=== PATIENT | female | born 1930 | race Caucasian/White ===

== ENCOUNTER 2019-04-24 19:40 | Inpatient (IN) | payer OTHER ==
[~2019-04-24] VITALS: Ht 165.1 cm; Wt 62.4 kg
[2019-04-24 19:40] VITALS: BP_SYST 118
--- NOTE | 2019-04-24 19:40 | NUR ---
Patient to ER bed 08 to gown for evaluation. Side rails up. Report given to DILCIA Hicks.
[2019-04-24] MEDS ORDERED: LACT1CAP7 PO (19:49)
--- NOTE | 2019-04-24 19:52 | NUR ---
Dr. Ray bedside for Pt eval
[2019-04-24] MEDS ORDERED: ALBU8.5H8 INH (19:53)
[2019-04-24] MEDS ORDERED: ANAS1TAB51 PO (19:54)
[2019-04-24] MEDS ORDERED: UMEC1BLS IH (19:55)
[2019-04-24] MEDS ORDERED: ASPI-1155 PO (19:56)
[2019-04-24] MEDS ORDERED: BRI.2% OP (19:57)
[2019-04-24] MEDS ORDERED: DOCU250C14 PO (19:57)
[2019-04-24] MEDS ORDERED: FERR-69 PO (20:00)
[2019-04-24] MEDS ORDERED: DILT300C54 PO (20:00)
--- NOTE | 2019-04-24 20:00 | NUR ---
Pt BIBA from [facility] to ED C/O shortness of breath today. Per family, Pt was seen around 14:00 today with difficulty breathing and a sharp chest pain, 5/10 in severity. Pain mild in severity. Pt has history of COPD and Dementia. Pt is normally not on O2. En route Pt was placed on 4 liters O2 with relief. Family reports noticing the Pt had difficulty with speaking today which is not baseline for for her. No other injuries and or complaints noted. VSS no s/s of acute distress. Resting on gurney with rails up. Pt has paperwork documentation for DNR status
[2019-04-24] MEDS ORDERED: HYDR200T80 PO (20:06)
[2019-04-24] MEDS ORDERED: MELA3TAB PO (20:06)
[2019-04-24] MEDS ORDERED: MULT-1100 PO (20:07)
[2019-04-24] MEDS ORDERED: PRO40 PO (20:08)
[2019-04-24] MEDS ORDERED: NACL 0.9% 1,000 ML IV ONE (20:08)
[2019-04-24] MEDS ORDERED: NAPR-1172 PO (20:08)
[2019-04-24] MEDS ORDERED: POTA-80 PO (20:09)
[2019-04-24] MEDS ORDERED: PRAV20TA PO (20:11)
[2019-04-24] MEDS ORDERED: DET2 PO (20:12)
--- NOTE | 2019-04-24 20:14 | NUR ---
Medication reconciliation completed with information provided by Burak Fink. Any prior medication reconciliation on file was reviewed and corrected.
[2019-04-24] MEDS ORDERED: cefTRIAXone 1 GM IVPB PREMIX 50 ML IV ONE (20:15)
[2019-04-24] MEDS ORDERED: LevALBUTEROL HCL 1.25 MG/0.5 ML *CONC.* VIAL.NEB (XOPENEX CONC.) INH ONE (20:15)
[2019-04-24] MEDS ORDERED: methylPREDNISolone SOD SUCC/PF 62.5 MG/ML VIAL IVP ONE (20:15)
[2019-04-24] MEDS ORDERED: IPRATROPIUM BROM 0.5 MG/2.5 ML VIAL.NEB (ATROVENT) IH ONE (20:15)
--- NOTE | 2019-04-24 20:21 | NUR ---
Portable X Ray bedside pt in stable condition
[2019-04-24 20:45] LABS: HEMATOCRIT 33.2 % (36-48); HEMOGLOBIN 11.1 g/dL (12.0-16.0); MEAN CORPUSCULAR HEMOGLOBIN 29 pg (27-31); MEAN CORPUSCULAR HGB CONC 33 % (32-36); MEAN CORPUSCULAR VOLUME 85 fL (79.0-98.0); PLATELET COUNT (AUTO) 148 K/uL (130-430); RED BLOOD CELL COUNT(AUTO) 3.89 MIL/uL (4.2-6.2); RED CELL DISTRIBUTION WIDTH 17.1 % (9.0-15.0)
--- NOTE | 2019-04-24 20:45 | NUR ---
RT bedside for ABG draw, well tolerated
[2019-04-24 20:50] LABS: ANION GAP 9 (5-15); CALCIUM 8.8 mg/dL (8.4-11.0); CHLORIDE 98 mmol/L (98-107); CREATININE 0.89 mg/dL (0.55-1.30); GLUCOSE 89 mg/dL (70-99); POTASSIUM 5.2 mmol/L (3.5-5.1); SODIUM SERUM 129 mmol/L (136-145); UREA NITROGEN, BLOOD 32 mg/dL (8-21)
[2019-04-24 20:56] LABS: INR 1.1 (0.8-1.2); PROTHROMBIN TIME 11.3 SECS (9.5-12.5)
[2019-04-24 20:59] LABS: ALANINE AMINOTRANSFERASE 17 U/L (12-78); ASPARTATE AMINOTRANSFERASE 30 U/L (10-37); TOTAL BILIRUBIN 0.7 mg/dL (0.0-1.0)
[2019-04-24 21:08] LABS: BAND % (MANUAL) 10 % (0-6); LYMPHOCYTES % (MANUAL) 1 % (20-46)
[2019-04-24 21:09] LABS: BASOPHILS % (MANUAL) 0 % (0-2); EOSINOPHILS % (MANUAL) 0 % (0-7); MONOCYTES % (MANUAL) 5 % (0-11)
--- NOTE | 2019-04-24 21:49 | NUR ---
RT informed Dr. Ray, unable to obtain ABG
--- NOTE | 2019-04-24 21:50 | NUR ---
VSS no s/s of acute distress. Resting on gurney with rails up
--- NOTE | 2019-04-24 22:40 | NUR ---
2nd Lactic lab drawn, well tolerated
--- NOTE | 2019-04-24 23:23 | NUR ---
Transfer to Telemetry via ACLS protocol. Licensed nurse present. IV present no signs or symptoms of infiltration.
--- NOTE | 2019-04-24 23:23 | NUR ---
Patient will be admitted to care of Dr. Cotto. Admitted to Telemetry unit. Will go to room 132C. Belongings list completed. Summary report printed. Report will be given at bedside.
--- NOTE | 2019-04-24 23:23 | NUR ---
ADMIT NOTE Received pt from ER to the floor with a diagnosis of PNA, SEPSIS. Admission process initiated. patient oriented to pain management, safety and call light-teach back done.
[2019-04-24 23:35] VITALS: BP_SYST 130
[2019-04-24] MEDS ORDERED: LEVOFLOXACIN 500 MG/D5W 100 ML IV SCH (23:45)
--- NOTE | 2019-04-24 23:50 | NUR ---
Initial RN notes Received pt from ED. Pt AOx1, able to follow commands. No s/s distress noted. On O2 4L via NC. IVF infusing on L. AC 20G clear and patent secured with gauze. Family at bedside. Bed low, locked, siderails x3 elevated, bed alarm on. Call light within reach. Pt room near nursing station. To monitor.
[2019-04-25] MEDS: IPRATROPIUM/ALBUTEROL SULFATE 3 ML AMPUL.NEB (DUONEB) INH SCH ×7 (00:15→22:50)
[2019-04-25] MEDS ORDERED: SODIUM POLYSTYRENE SULFONATE 15 GM/60 ML UDBTL PO SCH (00:30)
[2019-04-25 00:40] VITALS: BP_SYST 130
[2019-04-25 00:43] VITALS: BP_SYST 130
[2019-04-25] MEDS ORDERED: LEVOFLOXACIN 500 MG/D5W 100 ML IV ONE (00:55)
[2019-04-25] MEDS ORDERED: CLINDAMYCIN 600 mg/50mL D5W 100 ML IV ONE (00:56)
[2019-04-25] MEDS: CLINDAMYCIN 600 MG in D5W 50 ML IV SCH ×5 (00:57→23:37)
[2019-04-25] MEDS: NACL 0.9% 1,000 ML IV SCH ×2 (01:05→15:21)
--- NOTE | 2019-04-25 01:20 | NUR ---
[facility] CONSULT CALLED/DR. LOVE WRAPPER STEMMER HAND FOR DR. PAZ Spoke with Glory from exchange. Dr. Love will be covering for Dr. Paz today.
--- NOTE | 2019-04-25 01:23 | NUR ---
Kayexelate PO given per MD order with applesauce. Pt HOB elevated. Pt tolerated well, no coughing or drooling noted.
--- NOTE | 2019-04-25 01:27 | NUR ---
MRSA nares collected and sent to lab.
--- NOTE | 2019-04-25 01:55 | NUR ---
Wound Pt awake, small BM noted, pericare provided. Photos taken of left fourth toe wound 0.5cm x 0.5cm 60% yellow wound and 40% pink periwound open to air, no odor noted. Coccyx wound noted, photo taken and applied Z guard barrier cream. Pt tolerated well.
--- NOTE | 2019-04-25 03:52 | NUR ---
ABG drawn by RT at bedside. Addendum: 04/25/19 at 0451 by Iwona Amor RN On 2L TOMASA.
--- NOTE | 2019-04-25 06:10 | NUR ---
Closing notes Pt alert, awake, follows commands. SR on the monitor. Pt denies difficulty breathing. O2 2L via NC. PO med crushed and administered with applesauce. Pt sat upright, tolerated well. IV antibiotic administered as ordered L AC 20G no s/s infiltration. Kei heels floated on pillow. Incontinence care provided and barrier cream applied to sacral area. Repositioned. Call light within reach. Bed low, locked, siderails up x 2, bed alarm on. To endorse to AM nurse.
[2019-04-25] MEDS: PANTOPRAZOLE SODIUM 40 MG TAB PO SCH (06:14)
[2019-04-25 06:36] LABS: BASOPHILS % (AUTO) 0.1 % (0.0-2.0); HEMATOCRIT 28.9 % (36-48); HEMOGLOBIN 9.6 g/dL (12.0-16.0); LYMPHOCYTES # (AUTO) 0.2 K/uL (1.0-5.5); MEAN CORPUSCULAR HEMOGLOBIN 29 pg (27-31); MEAN CORPUSCULAR HGB CONC 33 % (32-36); MEAN CORPUSCULAR VOLUME 86 fL (79.0-98.0); MONOCYTES # (AUTO) 0.2 K/uL (0.0-1.0); MONOCYTES % (AUTO) 2.1 % (1.7-9.3); NEUTROPHILS # (AUTO) 11.1 K/uL (1.8-7.7); NEUTROPHILS % (AUTO) 95.8 % (40.0-70.0); PLATELET COUNT (AUTO) 133 K/uL (130-430); RED BLOOD CELL COUNT(AUTO) 3.36 MIL/uL (4.2-6.2); RED CELL DISTRIBUTION WIDTH 17.1 % (9.0-15.0); WHITE BLOOD COUNT (AUTO) 11.5 K/uL (4.8-10.8)
[2019-04-25 07:25] LABS: ANION GAP 7 (5-15); CALCIUM 8.5 mg/dL (8.4-11.0); CHLORIDE 101 mmol/L (98-107); GLUCOSE 158 mg/dL (70-99); POTASSIUM 4.7 mmol/L (3.5-5.1); SODIUM SERUM 130 mmol/L (136-145)
[2019-04-25 07:26] LABS: UREA NITROGEN, BLOOD 35 mg/dL (8-21)
[2019-04-25 08:00] VITALS: BP_SYST 114
[2019-04-25] MEDS: ENOXAPARIN SODIUM 30 MG/0.3 ML SYRINGE SUBCUT SCH (08:54)
[2019-04-25] MEDS: ASPIRIN 81 MG TAB.CHEW PO SCH (08:54)
[2019-04-25] MEDS: MULTIVITS,CA,MINERALS/IRON/FA 1 TABLET PO SCH (08:54)
[2019-04-25] MEDS: LACTOBACILLUS RHAMNOSUS GG 1 CAP CAPSULE PO SCH ×2 (08:54→21:59)
[2019-04-25] MEDS: DILTIAZEM HCL 120 MG CAP.SR.24H PO SCH (08:55)
[2019-04-25] MEDS: ANASTROZOLE 1 MG TABLET (ARIMIDEX) PO SCH (08:55)
[2019-04-25] MEDS: DOCUSATE SODIUM 250 MG CAPSULE PO SCH (08:56)
[2019-04-25] MEDS: DILTIAZEM HCL 180 MG CAP.SR.24H PO SCH (08:56)
[2019-04-25] MEDS: FERROUS SULFATE 325 MG TABLET.DR PO SCH (08:56)
[2019-04-25] MEDS: HYDROXYCHLOROQUINE SULFATE 200 MG TABLET PO SCH ×2 (08:56→21:58)
[2019-04-25] MEDS ORDERED: DILTIAZEM HCL 300 MG CAP.SR.24H PO SCH (09:00)
[2019-04-25] MEDS ORDERED: TOLTERODINE TARTRATE 2 MG TABLET(DETROL) PO SCH (09:00)
--- NOTE | 2019-04-25 09:30 | NUR ---
Skin /wound care completed , repositioned.
[2019-04-25] MEDS ORDERED: methylPREDNISolone SOD SUCC 40 MG/ML VIAL IVP ONE (10:15)
--- NOTE | 2019-04-25 10:27 | NUR ---
Nutrition Update Huy Scale 12 noted. Pt admitted for pneumonia, sepsis. Diet: pureed BMI: 22 kg/m2 RD to follow per nutrition care standards.
--- NOTE | 2019-04-25 11:40 | NUR ---
IV RE-INSERTION: Complaining of SWELLING to IV site. Restarted on LEFT FOREARM. Successful after 1 attempts. Resumed current IVF , Will observe for any signs of infiltration.
[2019-04-25] MEDS: BRIMONIDINE TARTRATE 0.2% 5 mL EYE DROPS OP SCH ×2 (12:07→21:59)
[2019-04-25 12:28] VITALS: BP_SYST 122
--- NOTE | 2019-04-25 13:08 | NUR ---
Igor Carrillo called, left message for Svetlana.
--- NOTE | 2019-04-25 14:13 | NUR ---
PATIENT RESTING: Patient resting quietly. No acute distress noted. Vital signs within normal range., HOB kept semi fowlers , family at the bedside.
[2019-04-25 16:12] VITALS: BP_SYST 122
--- NOTE | 2019-04-25 16:14 | NUR ---
Dietitian Recommendations * Recommend continuing pureed diet (ONS Ensure Enlive TID comes standard w/ pureed diet; provides 1050 kcal/day, 60 gm protein/day) * Consider ST saman eval albert HAN, RD Please refer to Nutrition Assessment for details Addendum: 04/25/19 at [address] Amended: Links added.
--- NOTE | 2019-04-25 18:09 | NUR ---
Assisted in feeding aspiration precaution tolerates pureed diet with out aspiration , with poor appetite.
--- NOTE | 2019-04-25 19:05 | NUR ---
OPENING NOTE Bedside report received from dayshift nurse. Patient received lying in bed, no s/s of acute distress noted. Breathing is even and unlabored. Nasal canula attached properly, on 2L of oxygen, HOB raised. IVF infusing well. Call light with patient. Bed alarm on. Bed is locked and at lowest position. Will continue to monitor.
[2019-04-25 20:00] VITALS: BP_SYST 131
--- NOTE | 2019-04-25 21:00 | NUR ---
ROUNDS/INCONTINENT CARE Patient in bed, receiving incontinent care from COCOA ROASTER. No signs of discomfort noted. Patient tolerating well. IVF infusing well. Will continue to monitor.
[2019-04-25] MEDS: methylPREDNISolone SOD SUCC 40 MG/ML VIAL IVP SCH (21:58)
[2019-04-25] MEDS: ATORVASTATIN 10 MG TABLET PO SCH (21:58)
[2019-04-25] MEDS: MIRTAZAPINE 15 MG TABLET PO SCH (21:59)
[2019-04-25] MEDS: LEVOFLOXACIN 250 MG/D5W 50 ML IV SCH (22:00)
[2019-04-25] MEDS: MEGESTROL ACETATE 400 MG/10 ML UDC PO SCH (22:00)
--- NOTE | 2019-04-25 23:00 | NUR ---
ROUNDS Patient in bed sleeping at this time. No s/s of acute distress noted. Breathing even and unlabored. IVF infusing well. Call light with patient. Bed alarm on. Will continue to monitor.
--- NOTE | 2019-04-26 01:00 | NUR ---
ROUNDS Patient sleeping at this time. No signs of discomfort noted. Chest rise and fall even bilaterally. IVF infusing well. Call light with patient. Bed alarm on. Will continue to monitor.
[2019-04-26 01:25] VITALS: BP_SYST 141
[2019-04-26] MEDS: IPRATROPIUM/ALBUTEROL SULFATE 3 ML AMPUL.NEB (DUONEB) INH SCH ×6 (02:25→22:10)
--- NOTE | 2019-04-26 03:00 | NUR ---
ROUNDS Patient in bed, asleep. No s/s of acute distress noted. Breathing even and unlabored. IVF infusing well. Nasal canula attached properly. HOB raised. Call light with patient. Bed alarm on. Will continue to monitor.
--- NOTE | 2019-04-26 05:00 | NUR ---
ROUNDS Patient in bed asleep. No signs of discomfort noted. Chest rise and fall even bilaterally. IVF infusing well. Call light with patient. Bed alarm on. Will continue to monitor.
[2019-04-26] MEDS: CLINDAMYCIN 600 MG in D5W 50 ML IV SCH ×3 (06:24→17:46)
[2019-04-26] MEDS: PANTOPRAZOLE SODIUM 40 MG TAB PO SCH (06:24)
[2019-04-26 06:41] LABS: BASOPHILS % (AUTO) 0.1 % (0.0-2.0); HEMATOCRIT 27.8 % (36-48); HEMOGLOBIN 9.4 g/dL (12.0-16.0); LYMPHOCYTES # (AUTO) 0.4 K/uL (1.0-5.5); LYMPHOCYTES % (AUTO) 4.9 % (20.5-51.5); MEAN CORPUSCULAR HEMOGLOBIN 29 pg (27-31); MEAN CORPUSCULAR HGB CONC 34 % (32-36); MEAN CORPUSCULAR VOLUME 86 fL (79.0-98.0); MONOCYTES # (AUTO) 0.4 K/uL (0.0-1.0); MONOCYTES % (AUTO) 4.6 % (1.7-9.3); NEUTROPHILS # (AUTO) 8.1 K/uL (1.8-7.7); NEUTROPHILS % (AUTO) 90.4 % (40.0-70.0); PLATELET COUNT (AUTO) 148 K/uL (130-430); RED BLOOD CELL COUNT(AUTO) 3.24 MIL/uL (4.2-6.2); RED CELL DISTRIBUTION WIDTH 17.4 % (9.0-15.0)
--- NOTE | 2019-04-26 06:41 | NUR ---
CLOSING NOTES Patient in bed sleeping at this time. No s/s of acute distress noted. Breathing even and unlabored. Nasal canula attached properly, on 2L of oxygen. HOB raised. IVF infusing well, IV site patent, no signs of infiltration or infection noted. Feet elevated with pillows. All needs met throughout shift. Fall and safety precautions maintained throughout shift. Will continue to monitor until patient care is endorsed to oncoming dayshift nurse.
[2019-04-26 06:53] LABS: ANION GAP 10 (5-15); CALCIUM 8.3 mg/dL (8.4-11.0); CHLORIDE 100 mmol/L (98-107); CREATININE 1.23 mg/dL (0.55-1.30); GLUCOSE 168 mg/dL (70-99); POTASSIUM 4.9 mmol/L (3.5-5.1); SODIUM SERUM 130 mmol/L (136-145); UREA NITROGEN, BLOOD 45 mg/dL (8-21)
--- NOTE | 2019-04-26 07:55 | NUR ---
INITIAL ROUNDS Received pt AAOx1, no s/s resp distress, no s/s pain or discomfort. Pt being fed breakfast by SENIOR ORACLE ADF DEVELOPER with aspiration precautions in place. IVF infusing well to LAC at ordered rate with no s/s infiltration to site. Pt on Q2 2L via NC as ordered. Skin and safety precautions in place. Call light within reach.
[2019-04-26 08:15] VITALS: BP_SYST 138
--- NOTE | 2019-04-26 08:38 | NUR ---
Igor Dodge update: received call from Courtney (applications architect for Svetlana). Courtney stated she received my message and will be in tomorrow morning.
[2019-04-26] MEDS: HYDROXYCHLOROQUINE SULFATE 200 MG TABLET PO SCH ×2 (10:17→21:00)
[2019-04-26] MEDS: DOCUSATE SODIUM 250 MG CAPSULE PO SCH (10:17)
[2019-04-26] MEDS: methylPREDNISolone SOD SUCC 40 MG/ML VIAL IVP SCH ×2 (10:17→21:53)
[2019-04-26] MEDS: FERROUS SULFATE 325 MG TABLET.DR PO SCH (10:17)
[2019-04-26] MEDS: LACTOBACILLUS RHAMNOSUS GG 1 CAP CAPSULE PO SCH ×2 (10:17→21:00)
[2019-04-26] MEDS: MEGESTROL ACETATE 400 MG/10 ML UDC PO SCH ×2 (10:17→21:00)
[2019-04-26] MEDS: MULTIVITS,CA,MINERALS/IRON/FA 1 TABLET PO SCH (10:17)
[2019-04-26] MEDS: ANASTROZOLE 1 MG TABLET (ARIMIDEX) PO SCH (10:17)
[2019-04-26] MEDS: ASPIRIN 81 MG TAB.CHEW PO SCH (10:18)
[2019-04-26] MEDS: DILTIAZEM HCL 120 MG CAP.SR.24H PO SCH (10:18)
[2019-04-26] MEDS: DILTIAZEM HCL 180 MG CAP.SR.24H PO SCH (10:18)
[2019-04-26] MEDS: ENOXAPARIN SODIUM 30 MG/0.3 ML SYRINGE SUBCUT SCH (10:21)
[2019-04-26] MEDS: BRIMONIDINE TARTRATE 0.2% 5 mL EYE DROPS OP SCH ×2 (10:28→21:53)
--- NOTE | 2019-04-26 10:45 | NUR ---
ROUNDS Pt resting quietly in bed with no s/s resp distress, no c/o pain or discomfort. Pt given due medications one pill at a time with aspiration precautions in place-pt able to swallow each pill, just took time. All precautions remain in place, call light within reach.
[2019-04-26] MEDS: NACL 0.9% 1,000 ML IV SCH ×2 (12:18→23:41)
[2019-04-26 12:50] VITALS: BP_SYST 129
--- NOTE | 2019-04-26 14:55 | NUR ---
ROUNDS Pt resting quietly in bed with no s/s resp distress, no c/o pain or discomfort. Pt's family at bedside, pt resfusing to wake up to eat her lunch. All precautions remain in place.
--- NOTE | 2019-04-26 16:10 | NUR ---
WOUND CARE Removed old dressing to sacral area. *Right sacral wound. Area cleansed with normal saline, hydrogel placed on wound bed, moisture barrier cream applied to periwound area, covered with foam dressing. Wound bed 100% pink, no odor, minimal drainage, no necrotic tissue note, periwound pink. Measures 0.5 cm x 0.5 cm. Left sacral wound. Area cleansed with normal saline, hydrogel placed on wound bed, moisture barrier cream applied to periwound area, covered with foam dressing. Wound bed 100% pink, no odor, minimal drainage, no necrotic tissue note, periwound pink. Measures 0.5 cm x 0.5 cm. Pt tolerated well. Pt repositioned with pillow support and heels off-loaded for skin care.
[2019-04-26 16:17] VITALS: BP_SYST 140
--- NOTE | 2019-04-26 18:16 | NUR ---
CLOSING NOTE Pt resting quietly in bed with no s/s resp distress, noted pt with dry cough. Order obtained for air mattress, pt placed on air mattress. IVf infusing well at ordered rate with no s/s infiltration to site. Pt's daughter at bedside. Needs met, call light within reach.
[2019-04-26 19:00] VITALS: BP_SYST 140
--- NOTE | 2019-04-26 19:15 | NUR ---
change of shift.pt.presents quiescent affect;calm,lethargic.pt.somnolent.general affect;calm,respiratory status stable; shallow breathing,bradypnea pattern/character.iv fluids infusing.call light/telephone w/in reach of the pt.family@bedside; multiple members.
[2019-04-26 20:00] VITALS: BP_SYST 140
--- NOTE | 2019-04-26 20:00 | NUR ---
pt assessed.v/s assessed.values w/in normal limits.pt.presents quiescent affect;calm,somnolent.lethargic.pt.assessed for cleanliness.pt.repositioned.iv access intact;patent.iv fluids infusing.general status stable.respiratory status;compromised. breathing pattern character;shallow,bradypnea;02-sat%=096%@room air.to continue to monitor breathing;respiratory status.call light/telephone placed w/in reach of the pt.
[2019-04-26] MEDS: ATORVASTATIN 10 MG TABLET PO SCH (21:00)
[2019-04-26] MEDS: OXYBUTYNIN CHLORIDE 5 MG TABLET PO SCH (21:00)
[2019-04-26] MEDS: MIRTAZAPINE 15 MG TABLET PO SCH (21:00)
--- NOTE | 2019-04-26 21:00 | NUR ---
2100p medications.i have attempted to administer the po medications;pt.presents lethargic somnolent status.pt.incapable to receive the administration of the po medications.i have administered eye gtts,ivpb;cleocin,solumedrol;ivp.to continue to monitor the pt's general status.
[2019-04-26] MEDS: LEVOFLOXACIN 250 MG/D5W 50 ML IV SCH (21:52)
--- NOTE | 2019-04-26 22:00 | NUR ---
pt.assessed.pt.presents quiescent affect;calm,somnolent.pt.assessed for cleanliness.pt.cleaned.pt.repositioned.iv access;intact;patent. iv fluids infusing.general status stable.respiratory status stable;unlabored.call light/telephone placed w/in reach of the pt.
--- NOTE | 2019-04-27 | NUR ---
pt.assessed.v/s assessed;values w/in normal limits.no c/o pain,nausea.pt.presents quiescent affect;calm,somnolent.pt.assessed for cleanliness.pt.repositioned.general status stable.respiratory status stable;.call light/telephone placed w/in reach of the pt.
[2019-04-27 00:59] VITALS: BP_SYST 111
[2019-04-27] MEDS: CLINDAMYCIN 600 MG in D5W 50 ML IV SCH ×5 (01:14→23:45)
--- NOTE | 2019-04-27 02:00 | NUR ---
pt assessed.pt.presents quiescent affect;calm,somnolent.pt.assessed for cleanliness.pt.repositioned.iv access intact;patent. general status stable.respiratory status stable.call light/telephone placed w/in reach of the pt.
[2019-04-27] MEDS: IPRATROPIUM/ALBUTEROL SULFATE 3 ML AMPUL.NEB (DUONEB) INH SCH ×6 (02:15→23:34)
--- NOTE | 2019-04-27 04:00 | NUR ---
pt.assessed pt.presents quiescent affect;calm somnolent.pt.assessed for cleanliness.pt.repositioned.iv acces intact;patent. general status stable.respiratory status stable.call light/telephone placed w/in the reach of the pt.
--- NOTE | 2019-04-27 06:01 | NUR ---
CONSULTATION CALLED FOR Starla AVENDANO FOR CONSULT OF CHF ORDER BY DR RAY SPOKE WITH DONNELL
[2019-04-27] MEDS: PANTOPRAZOLE SODIUM 40 MG TAB PO SCH (06:20)
--- NOTE | 2019-04-27 06:34 | NUR ---
pt.assessed.pt.presents quiescent affect;calm,somnolent.general status stable;lethargic.respiratory status stable. shallow depth:o2-sat%=96%@room air.pt.assessed for cleanliness.pt.cleaned,repositioned.iv access;intact;patent. iv fluids infusing.i have attempted to feed the pt.pudding p/t attempt to administer protonix;0700a dose:as a trial to eval swallow capacity. po:pt.refused the pudding.pt.presents weak swallow capacity;function.hold the protonix administration.i have weighed the pt;2/t monitoring of the bnp.
[2019-04-27 07:22] LABS: HEMATOCRIT 28.7 % (36-48); HEMOGLOBIN 9.6 g/dL (12.0-16.0); LYMPHOCYTES # (AUTO) 0.4 K/uL (1.0-5.5); MEAN CORPUSCULAR HEMOGLOBIN 29 pg (27-31); MEAN CORPUSCULAR HGB CONC 34 % (32-36); MEAN CORPUSCULAR VOLUME 86 fL (79.0-98.0); MONOCYTES # (AUTO) 0.6 K/uL (0.0-1.0); MONOCYTES % (AUTO) 4.9 % (1.7-9.3); NEUTROPHILS # (AUTO) 10.9 K/uL (1.8-7.7); NEUTROPHILS % (AUTO) 92.1 % (40.0-70.0); PLATELET COUNT (AUTO) 139 K/uL (130-430); RED BLOOD CELL COUNT(AUTO) 3.34 MIL/uL (4.2-6.2); RED CELL DISTRIBUTION WIDTH 17.4 % (9.0-15.0); WHITE BLOOD COUNT (AUTO) 11.9 K/uL (4.8-10.8)
--- NOTE | 2019-04-27 07:30 | NUR ---
Opening note Patient resting in bed at this time, A/Ox2, responsive. No SOB. No complaints of pain. IV patent, intact, and infusing as ordered. no adverse side effects noted. On safety and aspiration preacutions, HOB kept elevated, bed alarm on, bed in lowest position, 3 side rails up. Call light within reach. Will continue to monitor.
[2019-04-27 07:34] LABS: ANION GAP 10 (5-15); CALCIUM 7.6 mg/dL (8.4-11.0); CHLORIDE 103 mmol/L (98-107); CREATININE 1.31 mg/dL (0.55-1.30); GLUCOSE 119 mg/dL (70-99); POTASSIUM 5.1 mmol/L (3.5-5.1); SODIUM SERUM 133 mmol/L (136-145); UREA NITROGEN, BLOOD 55 mg/dL (8-21)
[2019-04-27 08:40] VITALS: BP_SYST 145
[2019-04-27] MEDS: LACTOBACILLUS RHAMNOSUS GG 1 CAP CAPSULE PO SCH ×2 (09:12→22:07)
[2019-04-27] MEDS: OXYBUTYNIN CHLORIDE 5 MG TABLET PO SCH ×2 (09:12→22:08)
[2019-04-27] MEDS: ANASTROZOLE 1 MG TABLET (ARIMIDEX) PO SCH (09:12)
[2019-04-27] MEDS: ASPIRIN 81 MG TAB.CHEW PO SCH (09:13)
[2019-04-27] MEDS: HYDROXYCHLOROQUINE SULFATE 200 MG TABLET PO SCH ×2 (09:13→22:13)
[2019-04-27] MEDS: FERROUS SULFATE 325 MG TABLET.DR PO SCH (09:14)
[2019-04-27] MEDS: MULTIVITS,CA,MINERALS/IRON/FA 1 TABLET PO SCH (09:14)
[2019-04-27] MEDS: DILTIAZEM HCL 120 MG CAP.SR.24H PO SCH (09:14)
[2019-04-27] MEDS: DILTIAZEM HCL 180 MG CAP.SR.24H PO SCH (09:14)
[2019-04-27] MEDS: methylPREDNISolone SOD SUCC 40 MG/ML VIAL IVP SCH (09:15)
[2019-04-27] MEDS: DOCUSATE SODIUM 250 MG CAPSULE PO SCH (09:15)
[2019-04-27] MEDS: ENOXAPARIN SODIUM 30 MG/0.3 ML SYRINGE SUBCUT SCH (09:16)
[2019-04-27] MEDS: BRIMONIDINE TARTRATE 0.2% 5 mL EYE DROPS OP SCH ×2 (09:16→22:02)
--- NOTE | 2019-04-27 09:30 | NUR ---
medications Patient Alert and respnsive, able to follow commands. All morning medications given as ordered. tolerated well, no trouble swallowing. No adverse side effects noted.
[2019-04-27] MEDS: NACL 0.9% 1,000 ML IV SCH (09:37)
--- NOTE | 2019-04-27 10:56 | NUR ---
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 RECOMMEND PUREE DIET AND THIN LIQUIDS BY SMALL SIPS AND BITES, WITH RESERVATION; WHOLE MEDS OK IF 1 AT A TIME WITH PUREE; VISUAL CHECK OF ORAL CAVITY WHILE FEEDING, FEED ONLY WHEN ALERT AND RESPONSIVE WITH HOB AT 90 DEGREES. THIS WAS DISCUSSED WITH FAMILY AT BEDSIDE AND WITH RN.
[2019-04-27 12:17] VITALS: BP_SYST 138
--- NOTE | 2019-04-27 12:30 | NUR ---
Lunch Patient is lethargic, sleeping, will hold tray until patient id more alert.
[2019-04-27] MEDS ORDERED: FUROSEMIDE 20 MG/2 ML VIAL IVP ONE (14:15)
--- NOTE | 2019-04-27 14:30 | NUR ---
Rounds Patient resting in bed at this time, No complaints of pain. Patient is sleeping at this time, family at bedside.
[2019-04-27 16:15] VITALS: BP_SYST 131
--- NOTE | 2019-04-27 16:35 | NUR ---
CONSULTATION CALLED FOR RASHEED GARCIA FOR CONSULT OF HCAP ORDER BY DR RAY SPOKE WITH ANGLE SENT OVER FACE SHEET
--- NOTE | 2019-04-27 16:45 | NUR ---
WOUND EVALUATION: Late note for 1644 secondary to patient care. Wound Consult received from Dr. Cotto. Thank you, Dr. Cotto, for the consult. Patient received in a Newton Bed with an Isoflex ARMIDA mattress with low air loss therapy initiated, awake, alert, confused. Patient is unable to turn in bed independently. Huy Score is a 12. Past Medical History: COPD, Dementia, Dysphagia, Wheelchair Bound. Recent Labs: WBC 11.9, RBC 3.34, hemoglobin 9.6, hematocrit 28.7, sodium 133, BUN 55, creatinine 1.31, glucose 119, calcium 7.6, BNP 893, albumin 3.0. Microbiology: Blood culture results 2 in progress. MRSA screen results negative. Intrinsic factors that delay wound healing: COPD, hypoalbuminemia. Extrinsic factors that delay wound healing: Decreased mobility. Wound Assessment: 1. Superior Sacral area: Reopened scar tissue from a wound of prior unknown etiology, present on admission. Wound bed has 100% dark red tissue. No odor, no drainage. Periwound intact. Surrounding tissue has dark discolored tissue and scar tissue. Wound measures 0.9 cm x 0.5 cm. 2. Sacral area, left medial to wound 1 Reopened scar tissue from a wound of prior unknown etiology, present on admission. Wound bed has 100% dark red tissue. No odor, no drainage. Periwound intact. Surrounding tissue has dark discolored tissue and scar tissue. Wound measures 0.4 cm x 0.1 cm. 3. Sacral area, left lateral to wound 1: Reopened scar tissue from a wound of prior unknown etiology, present on admission. Wound bed has 100% dark red tissue. No odor, no drainage. Periwound intact. Surrounding tissue has dark discolored tissue and scar tissue. Wound measures 0.7 cm x 0.5 cm. Recommend: Cleanse wounds with normal saline. Apply moisture barrier cream to wounds and wiliam-wounds. Apply Hydrogel to any portion of wounds not covered by moisture barrier cream. Cover with Sacral foam dressing. Perform wound care daily, and as needed for dressing soiling or dislodgement. 4. Left fourth toe, dorsal aspect: Chronic wound, present on admission. Wound bed has 100% yellow eschar. No odor, no drainage. Periwound intact. Wound measures 0.5 cm x 0.4 cm. Recommend: No dressing needed. Continue to monitor site every shift. Contact wound care nurse if site opens or drains. Also recommend: Reposition patient [id number] only every 2 hours with pillow support, and off-load pressure areas with pillows for pressure re-distribution. Offload, elevate and float bilateral heels with pillows. Perform skin care and monitor skin integrity Q shift. Use moisture barrier cream on buttocks and other moisture susceptible areas QID and as needed for soiling. Maintain patient on a low air-loss mattress.
--- NOTE | 2019-04-27 16:45 | NUR ---
Wound consult Patient seen by Ashok, wound care done as ordered, dressing applied. Patient in stable condition at this time.
--- NOTE | 2019-04-27 18:45 | NUR ---
Closing note Patient resting in bed at this time, responsive to verbal stimuli. No complaints of pain. IV patent, and intact. On safety and aspiration precautions, HOB kept elevated, bed alarm on, bed in lowest position, 3 side rails up. Call light within reach. Patient in stable condition. All needs met.
--- NOTE | 2019-04-27 20:30 | NUR ---
Opening notes Pt awake, confused. Pt removing O2 at this time. Pt incontinent of urine. Pericare provided per MAGNETOMETER OPERATOR. Family at bedside. IV saline lock L. FA 22 clear and patent. Call light within reach. Bed low, locked, bed alarm on. To monitor.
[2019-04-27 21:40] VITALS: BP_SYST 159
[2019-04-27] MEDS: LEVOFLOXACIN 250 MG/D5W 50 ML IV SCH (22:01)
--- NOTE | 2019-04-27 22:07 | NUR ---
Rounds Pt awake, no s/s distress noted. Pt sat upright, IV antibiotic and PO meds administered as ordered with applesauce. Tolerated well. To monitor.
[2019-04-27] MEDS: MIRTAZAPINE 15 MG TABLET PO SCH (22:08)
[2019-04-27] MEDS: ATORVASTATIN 10 MG TABLET PO SCH (22:08)
--- NOTE | 2019-04-27 23:45 | NUR ---
Rounds Pt asleep, respirations even and unlabored. IV antibiotic administered as ordered. L. FA no s/s infiltration. Call light within reach. To monitor.
[2019-04-28 00:57] VITALS: BP_SYST 94
--- NOTE | 2019-04-28 01:40 | NUR ---
Rounds Pt asleep, no s/s distress or sob noted. Bed maintained low, locked, siderails up x2, alarm on. To monitor.
[2019-04-28] MEDS: IPRATROPIUM/ALBUTEROL SULFATE 3 ML AMPUL.NEB (DUONEB) INH SCH ×4 (04:04→15:16)
--- NOTE | 2019-04-28 04:45 | NUR ---
Rounds Pt asleep, respirations even and unlabored. No s/s distress noted. IV saline lock L forearm. Bed low, locked, alarm on. To monitor.
--- NOTE | 2019-04-28 05:30 | NUR ---
Closing notes/wound care Pt asleep, arousable. Incontinent of urine. Pericare provided with REGIONAL TRUCK DRIVER assist, sacral wound dressing changed, labeled with date and time. IV saline lock L. FA 20 G clear and patent. Call light within reach. Bed low, locked, siderails up x3, bed alarm on. To endorse to AM nurse.
[2019-04-28] MEDS: CLINDAMYCIN 600 MG in D5W 50 ML IV SCH ×2 (05:38→12:33)
--- NOTE | 2019-04-28 06:10 | NUR ---
Chest Xray at bedside.
[2019-04-28] MEDS: PANTOPRAZOLE SODIUM 40 MG TAB PO SCH (06:13)
[2019-04-28 06:47] LABS: HEMATOCRIT 31.1 % (36-48); HEMOGLOBIN 10.2 g/dL (12.0-16.0); LYMPHOCYTES # (AUTO) 0.6 K/uL (1.0-5.5); LYMPHOCYTES % (AUTO) 4.4 % (20.5-51.5); MEAN CORPUSCULAR HEMOGLOBIN 28 pg (27-31); MEAN CORPUSCULAR HGB CONC 33 % (32-36); MEAN CORPUSCULAR VOLUME 86 fL (79.0-98.0); MONOCYTES # (AUTO) 1.2 K/uL (0.0-1.0); NEUTROPHILS # (AUTO) 11.8 K/uL (1.8-7.7); NEUTROPHILS % (AUTO) 86.6 % (40.0-70.0); PLATELET COUNT (AUTO) 119 K/uL (130-430); RED BLOOD CELL COUNT(AUTO) 3.61 MIL/uL (4.2-6.2); RED CELL DISTRIBUTION WIDTH 17.6 % (9.0-15.0); WHITE BLOOD COUNT (AUTO) 13.7 K/uL (4.8-10.8)
[2019-04-28 07:04] LABS: ANION GAP 12 (5-15); CALCIUM 8.2 mg/dL (8.4-11.0); CHLORIDE 104 mmol/L (98-107); CREATININE 1.39 mg/dL (0.55-1.30); GLUCOSE 130 mg/dL (70-99); POTASSIUM 4.9 mmol/L (3.5-5.1); SODIUM SERUM 137 mmol/L (136-145); UREA NITROGEN, BLOOD 62 mg/dL (8-21)
--- NOTE | 2019-04-28 07:35 | NUR ---
Opening note Patient resting in bed at this time, A/Ox1, responsive to verbal stimuli. No SOB. No complaints of pain. IV patent, intact. no adverse side effects noted. On safety and aspiration precautions, HOB kept elevated, bed alarm on, bed in lowest position, 3 side rails up. Call light within reach. Will continue to monitor.
[2019-04-28] MEDS: MULTIVITS,CA,MINERALS/IRON/FA 1 TABLET PO SCH ×2 (09:00→09:58)
[2019-04-28] MEDS: ENOXAPARIN SODIUM 30 MG/0.3 ML SYRINGE SUBCUT SCH (09:00)
[2019-04-28] MEDS: FERROUS SULFATE 325 MG TABLET.DR PO SCH ×2 (09:00→09:57)
[2019-04-28] MEDS: ANASTROZOLE 1 MG TABLET (ARIMIDEX) PO SCH ×2 (09:00→09:58)
[2019-04-28] MEDS: DILTIAZEM HCL 180 MG CAP.SR.24H PO SCH ×2 (09:00→09:57)
[2019-04-28] MEDS: LACTOBACILLUS RHAMNOSUS GG 1 CAP CAPSULE PO SCH ×2 (09:00→09:56)
[2019-04-28] MEDS: HYDROXYCHLOROQUINE SULFATE 200 MG TABLET PO SCH ×2 (09:00→09:58)
[2019-04-28] MEDS: ASPIRIN 81 MG TAB.CHEW PO SCH ×2 (09:00→09:58)
[2019-04-28] MEDS: DILTIAZEM HCL 120 MG CAP.SR.24H PO SCH ×2 (09:00→09:57)
[2019-04-28] MEDS: OXYBUTYNIN CHLORIDE 5 MG TABLET PO SCH ×2 (09:00→09:58)
[2019-04-28] MEDS: DOCUSATE SODIUM 250 MG CAPSULE PO SCH ×2 (09:00→09:58)
[2019-04-28] MEDS ORDERED: NACL 0.9% 1,000 ML IV SCH (10:00)
--- NOTE | 2019-04-28 10:00 | NUR ---
Medications/ Lovenox Patient refused medications this morning, unable to follow command. Platelet count 119, made aware, Lovenox held.
[2019-04-28] MEDS: BRIMONIDINE TARTRATE 0.2% 5 mL EYE DROPS OP SCH (10:01)
[2019-04-28 12:00] VITALS: BP_SYST 130
--- NOTE | 2019-04-28 12:00 | NUR ---
wheezing patient noted to be wheezing with crackles, Dr. Long aware. No new orders. MD to speak to family.
--- NOTE | 2019-04-28 14:30 | NUR ---
Lunch/ Skin care Skin care provided, oral care provided. Patient refusing meals, patient unable to follow commands. Family at bedside.
[2019-04-28] MEDS ORDERED: PEG 400/HYPROMELLOSE/GLYCERIN 15 ML DROPS BOTH EYES ONE (14:45)
--- NOTE | 2019-04-28 15:09 | NUR ---
Nutrition F/U RD reviewed pt's current EMR records, physicians, nursing notes, pertinent medications and labs, care activity, and care trends. Current diet order: pureed with Ensure Enlive TID Subjective information RD visited pt in room, family at bedside. Per family, pt no longer eating, pt DNR status: active. Per physician notes, plan to D/C pt back to SNF with hospice care. Current % PO 10% average x 7 meals Estimated Energy Expenditure (kcals/day) 6817-5910 kcal/day (30-35 kcal/kg CBW for sepsis) Estimated Protein Required (g/day) 90-120 gm/day (1.5-2 gm/kg CBW for sepsis) Estimated Fluid Required (l/day) 1.5 L/day (25 ml/kg CBW for geriatric maintenance) Problem/Etiology/Signs/Symptoms Increased nutritional needs related to metabolic demands as evidenced by estimated nutritional requirements for sepsis. *ongoing Expected Outcomes/Goals - Monitor appetite and PO intakes w/ goal of pt meeting at least 75% of estimated nutritional needs, labs trending WNL, normal GI function, and skin integrity/wt maintenance Dietitian Recommendations * Consider NPO status Follow Up Mod Risk: F/U in 3-5 days
--- NOTE | 2019-04-28 15:17 | NUR ---
Dietitian Recommendations * Consider NPO status Please refer to RD F/U for further details. LT, RD
--- NOTE | 2019-04-28 15:39 | NUR ---
Discharge Planning: DCP faxed to Burak Fink (f [phone] p [phone]) Rm 16A, Transportation arrange with [facility] ([phone]) 6:00pm P/U. Nurse aware pt packet taken to nurse station.
--- NOTE | 2019-04-28 16:08 | NUR ---
Customer Relations Representative Note Plan for patient to return to [facility] with hospice. SPEECH LANGUAGE ASSISTANT was notified after family signed the paperwork with Marco Quiros with [facility] [phone] or [phone]. Patient will be transported to [facility] at 6pm. Family no longer in the room.
--- NOTE | 2019-04-28 16:30 | NUR ---
Rounds patient sitting up in bed, opens eyes to verbal stimuli. Patient noted to be lethargic. no acute distress.
[2019-04-28 17:05] VITALS: BP_SYST 146
[2019-04-28 17:46] VITALS: BP_SYST 146
--- NOTE | 2019-04-28 18:00 | NUR ---
PT TRANSFERRED Report given to Beti at [facility]. Transfer packet with Transfer Orders and Medication Reconciliation form given to EMT with report. Exitcare provided. [facility] ID band removed, replaced with ID band with pt's name and . IV catheter saline locked. All belongings sent with patient. Patient left floor via gurney escorted by EMT in no distress.
[2019-04-28] MEDS ORDERED: CEFEPIME 0.5 GM in D5W 50 ML IV SCH (21:00)
[2019-04-28] MEDS ORDERED: PEG 400/HYPROMELLOSE/GLYCERIN 15 ML DROPS BOTH EYES SCH (21:00)
== END 2019-04-28 18:10 | disposition hospice, inpatient (51) | DRG 871 ==
LOC: SED 19:40 → STU 22:43 → SMU 04-25 19:09
PROVIDERS: ADMIT Internal Medicine; ATTEND Internal Medicine
DX: A41.9 Sepsis, unspecified organism (principal); J69.0 Pneumonitis due to inhalation of food and vomit; J96.21 Acute and chronic respiratory failure with hypoxia; N17.9 Acute kidney failure, unspecified; J44.1 Chronic obstructive pulmonary disease with (acute) exacerbation; E44.1 Mild protein-calorie malnutrition; I13.0 Hypertensive heart and chronic kidney disease with heart failure and stage 1 through stage 4 chronic kidney disease, or unspecified chronic kidney disease; I50.30 Unspecified diastolic (congestive) heart failure; D64.9 Anemia, unspecified; E86.0 Dehydration; F03.90 Unspecified dementia, unspecified severity, without behavioral disturbance, psychotic disturbance, mood disturbance, and anxiety; I27.20 Pulmonary hypertension, unspecified; Z51.5 Encounter for palliative care; Z66 Do not resuscitate; R13.10 Dysphagia, unspecified; K31.89 Other diseases of stomach and duodenum; I35.0 Nonrheumatic aortic (valve) stenosis; M06.9 Rheumatoid arthritis, unspecified; N18.9 Chronic kidney disease, unspecified; Z85.3 Personal history of malignant neoplasm of breast; Z87.891 Personal history of nicotine dependence; Z88.0 Allergy status to penicillin; Z90.11 Acquired absence of right breast and nipple; Z95.2 Presence of prosthetic heart valve; Z99.3 Dependence on wheelchair; Z85.038 Personal history of other malignant neoplasm of large intestine; Z68.22 Body mass index [BMI] 22.0-22.9, adult
CPT/HCPCS: 36415; 36600; 71045; 71250-TC; 80048; 80053; 82803-TC; 83605; 83880; 84484; 85007; 85025; 85027; 85610-TC; 85730-TC; 87040-TC; 87081; 92610-GN; 93005; 93306; 94640; 94760; 96365; 96375; 97110-GP; 97530-GP; 99285; G0378; J0692; J0696; J1030; J1650; J1940; J1956; J2930; J3490; J7030; J7060; J7612; J7620